=== PATIENT | female | born 1990 | race Hispanic/Latino ===

== ENCOUNTER 2017-12-24 19:05 | Emergency (ER) | payer OTHER ==
[2017-12-24 19:35] LABS: KETONE, URINE AUTO RFX NEGATIVE (NEGATIVE); LEUKOCYTE ESTERASE UR AUTO RFX NEGATIVE (NEGATIVE); MUCUS, URINE RFX SMALL (NEGATIVE); NITRITE, URINE AUTO RFX NEGATIVE (NEGATIVE); RBC, URINE AUTO RFX 2 /HPF (0-3); SQUAM EPITHELIAL CELL UR AURFX 0 /HPF (0-6); WBC, URINE AUTO RFX 0 /HPF (0-3)
[2017-12-24 19:37] LABS: BASO % 0.2 % (0.0-1.0); EOS # 0.2 10^3/uL (0.0-0.50); HEMATOCRIT 41.9 % (36.0-47.0); HEMOGLOBIN 14.2 g/dl (12.0-15.5); IMMATURE GRANULOCYTE % 0.4 % (0-3.0); LYMPH # 1.5 10^3/uL (1.5-6.5); LYMPH % 12.7 % (24.0-44.0); MEAN CORPUSCULAR HEMOGLOBIN 30.7 pg (27.0-33.0); MEAN CORPUSCULAR HGB CONC 33.9 g/dl (32.0-36.5); MEAN CORPUSCULAR VOLUME 90.7 fl (80.0-96.0); MONO # 0.8 10^3/uL (0.0-0.8); MONO % 6.4 % (0.0-5.0); NEUTROPHILS # 9.5 10^3/uL (1.8-7.7); NEUTROPHILS % 78.3 % (36.0-66.0); PLATELET COUNT, AUTOMATED 314 10^3/uL (150-450); RED BLOOD COUNT 4.62 10^6/uL (4.00-5.40); RED CELL DISTRIBUTION WIDTH 12.4 % (11.5-14.5); WHITE BLOOD COUNT 12.1 10^3/uL (4.0-10.0)
[2017-12-24 20:24] LABS: ANION GAP 9 MEQ/L (8-16); BLOOD UREA NITROGEN 9 MG/DL (7-18); CALCIUM LEVEL 9.3 MG/DL (8.5-10.1); CARBON DIOXIDE LEVEL 28 MEQ/L (21-32); CHLORIDE LEVEL 102 MEQ/L (98-107); CREATININE FOR GFR 0.78 MG/DL (0.55-1.30); GLOMERULAR FILTRATION RATE > 60.0 (>60); GLUCOSE, FASTING 85 MG/DL (70-100); HCG, SERUM QUANTITATIVE 11925 MIU/ML; POTASSIUM SERUM 3.9 MEQ/L (3.5-5.1); SODIUM LEVEL 139 MEQ/L (136-145)
== END 2017-12-24 21:28 | disposition home or self-care (01) ==
LOC: M ED 19:05
DX: O03.9 Complete or unspecified spontaneous abortion without complication (principal)
CPT/HCPCS: 76801

== ENCOUNTER → 2017-12-30 | Outpatient (CLI) | payer OTHER | LOC: M WHC 14:32 | DX: O02.81 Inappropriate change in quantitative human chorionic gonadotropin (hCG) in early pregnancy (principal) | CPT/HCPCS: 76801 ==

== ENCOUNTER 2018-01-11 07:23 | Day surgery (SDC) | payer OTHER ==
[2018-01-11 07:44] LABS: HEMATOCRIT 39.1 % (36.0-47.0); MEAN CORPUSCULAR HEMOGLOBIN 30.4 pg (27.0-33.0); MEAN CORPUSCULAR HGB CONC 33.2 g/dl (32.0-36.5); MEAN CORPUSCULAR VOLUME 91.4 fl (80.0-96.0); PLATELET COUNT, AUTOMATED 300 10^3/uL (150-450); RED BLOOD COUNT 4.28 10^6/uL (4.00-5.40); RED CELL DISTRIBUTION WIDTH 12.6 % (11.5-14.5); WHITE BLOOD COUNT 9.4 10^3/uL (4.0-10.0)
[2018-01-11] MEDS: DOXYCYCLINE HYCLATE 100 MG TAB PO ×2 (07:50→11:11)
[2018-01-11] MEDS: LR 1,000 ML IV (08:10)
[2018-01-11] MEDS ORDERED: LIDOCAINE 2% INJ 100 MG/5 ML SDV (FOR ANES.) As Ordered (08:29)
[2018-01-11] MEDS ORDERED: MIDAZOLAM INJ 2 MG/2 ML VIAL (J2250) As Ordered (08:29)
[2018-01-11] MEDS ORDERED: PROPOFOL 200 MG/20 ML VIAL As Ordered (08:29)
[2018-01-11] MEDS ORDERED: fentaNYL 100 MCG/2 ML INJECTION (J3010) As Ordered (08:30)
[2018-01-11] MEDS ORDERED: ONDANSETRON 4MG/2ML VIAL (J2405) As Ordered ×2 (08:33→09:07)
[2018-01-11] MEDS ORDERED: SCOPOLAMINE 1MG TRANSDERMAL PATCH As Ordered (08:33)
[2018-01-11] MEDS: SCOPOLAMINE 1MG TRANSDERMAL PATCH TOP (08:35)
[2018-01-11] MEDS ORDERED: ROCURONIUM BROMIDE 50 MG/5 ML VIAL As Ordered (08:36)
[2018-01-11] MEDS: ONDANSETRON 4MG/2ML VIAL (J2405) IV (08:36)
[2018-01-11] MEDS ORDERED: METOCLOPRAMIDE INJ 10MG/2ML VIAL (J2765) As Ordered (09:07)
[2018-01-11] MEDS ORDERED: SUGAMMADEX SODIUM 500 MG/5 ML VIAL (BRIDION) As Ordered (09:07)
[2018-01-11] MEDS ORDERED: dexameTHASONE 4 MG/ML 1ML VIAL (J1100) As Ordered ×2 (09:07)
[2018-01-11] MEDS ORDERED: KETOROLAC 60 MG/2 ML VIAL (J1885) As Ordered (09:07)
[2018-01-11] MEDS: METHYLERGONOVINE MALEATE 0.2 MG/ML VIAL (J2210) As Ordered (09:39)
[2018-01-11] MEDS: DOXYCYCLINE HYCLATE 100 MG/10 ML VIAL As Ordered (09:42)
[2018-01-11] MEDS ORDERED: IBUPROFEN 800 MG TAB PO ×2 (10:15→17:00)
[2018-01-11] MEDS ORDERED: PERCOCET 5MG/325MG TAB PO ×2 (10:15)
[2018-01-11] MEDS ORDERED: fentaNYL 100 MCG/2 ML INJECTION (J3010) IV (10:15)
[2018-01-11] MEDS ORDERED: ONDANSETRON 4MG/2ML VIAL (J2405) IV (10:15)
[2018-01-11] MEDS ORDERED: METOCLOPRAMIDE INJ 10MG/2ML VIAL (J2765) IV (10:15)
[2018-01-11] MEDS ORDERED: LR 1,000 ML IV (10:15)
== END 2018-01-11 11:54 | disposition home or self-care (01) ==
LOC: M SDC 07:23
DX: O02.1 Missed abortion (principal)
CPT/HCPCS: 59820

== ENCOUNTER 2018-12-30 10:20 | Emergency (ER) | payer OTHER ==
[~2018-12-30] VITALS: Ht 157.5 cm; Wt 77.2 kg
[~2018-12-30 10:20] MED LIST: PRENTAB55 PO
[2018-12-30] MEDS ORDERED: PREN27TA3 (10:25)
[2018-12-30 11:16] LABS: BASO % 0.2 % (0.0-1.0); EOS # 0.1 10^3/uL (0.0-0.5); EOS % 1.2 % (0.0-3.0); HEMOGLOBIN 12.9 g/dl (12.0-15.5); LYMPH # 1.9 10^3/uL (1.5-5.0); LYMPH % 19.3 % (24.0-44.0); MEAN CORPUSCULAR HEMOGLOBIN 30.2 pg (27.0-33.0); MEAN CORPUSCULAR HGB CONC 33.1 g/dl (32.0-36.5); MEAN CORPUSCULAR VOLUME 91.3 fl (80.0-96.0); MONO # 0.5 10^3/uL (0.0-0.8); MONO % 5.1 % (0.0-5.0); NEUTROPHILS # 7.1 10^3/uL (1.5-8.5); NEUTROPHILS % 73.9 % (36.0-66.0); PLATELET COUNT, AUTOMATED 295 10^3/uL (150-450); RED BLOOD COUNT 4.27 10^6/uL (4.00-5.40); WHITE BLOOD COUNT 9.6 10^3/uL (4.0-10.0)
[2018-12-30 11:46] LABS: HCG, SERUM QUALITATIVE POSITIVE (NEGATIVE)
--- NOTE | 2018-12-30 11:52 | REP ---
First trimester emergency obstetric sonography: History: The vaginal bleeding. Findings: Transabdominal scanning confirms presence of a viable single intrauterine gestation. Embryonic pole is 38 mm in crown-rump length corresponding to a gestational age estimate 7 weeks 5 days. heart rate is documented at 169 beats per minute. No subchorionic hemorrhage is seen. No extrauterine abnormalities observed. Impression: Viable single intrauterine gestation at 10 weeks 5 days by crown-rump length. LOLI by sonography July 23, 2019. No complication is identified. Electronically Signed by Mike Huitron MD 12/30/2018 11:44 A
[2018-12-30 12:51] LABS: HCG, SERUM QUANTITATIVE 59344 MIU/ML
[2018-12-30 13:21] VITALS: BP 114/65
[2018-12-30 14:43] LABS: CHLAMYDIA DNA AMPLIFICATION NEGATIVE (NEGATIVE); GC DNA AMPLIFICATION NEGATIVE (NEGATIVE)
== END 2018-12-30 13:35 | disposition home or self-care (01) ==
LOC: M ED 10:20
DX: O20.8 Other hemorrhage in early pregnancy (principal); Z87.59 Personal history of other complications of pregnancy, childbirth and the puerperium; Z3A.10 10 weeks gestation of pregnancy; Z79.899 Other long term (current) drug therapy

== ENCOUNTER 2019-07-22 05:39 | Inpatient (IN) | payer OTHER ==
[~2019-07-22] VITALS: Ht 160 cm; Wt 85.0 kg
[2019-07-22] VITALS (28 sets, daily range): BP systolic 95–136; BP diastolic 53–81
[~2019-07-22 05:39] MED LIST changes: +PREN27TA3
[2019-07-22] MEDS ORDERED: LACTATED RINGER'S 1000 ML IV STA (06:03)
[2019-07-22] MEDS ORDERED: PENICILLIN G POTASSIUM IV 5 MU in D5W MINI-BAG PLUS 100 ML IV STA (06:03)
--- NOTE | 2019-07-22 06:15 | HPEPDOC ---
Obstetrical History & Physical General Date of Admission July 22, 2019 at 05:39 History of Present Illness Traci is a 28yo with SIUP at 39w4d by lmp c/w 11wk u/s presenting fo r regular ctx for approx 3 hours. Painful, breathing through them. No LOF, no vaginal bleeding, good movement. No n/v/f/c/CP/SOB. Chief Complaint: Contractions, term Information Provided By: Patient Care Care: Good Care Dating Final EDC: Jul 25, 2019 Final EDC by: LMP, 1st trimester (US) Antepartum Course Diagnos(e)s Overweight (starting BMI 27.5), elevated early 1hr glucola with normal 3hr GTT and subsequent normal 1hr glucola at 28wk, anemia Height (inches): 63 Pre- weight (lbs.): 155 Admission Weight (lbs.): 184 Change in Weight (lbs.): 29 Past Medical History Past Obstetrical History : Past Obstetrical History: Multigravida (G1 08/2016 39wk uncomplicated [id number] F. G2 8wk sab with D&C) [employer] History: Spontaneous Past Medical History Medical History Overweight BMI 27 Surgical History: Dilatation and Curettage, [place] teeth, Other (right knee scope) Family History Significant Family History: No pertinent family hx Social History Marital Status: Family situation: Spouse/partner home Psychosocial History: No pertinent psych hx * Smoker: non-smoker Alcohol: Denies Drugs: denies Imunizations Tdap status: current Influenza Status: current Allergies Coded Allergies: No Known Allergies (Unverified , 12/24/17) Medications Miscellaneous Medications Pnv,Calcium 72/Iron/Folic Acid ( Vitamin Plus Low Iron) 1 Each Tablet Physical Examination Physical Examination GENERAL: Alert and oriented times three. ABDOMEN: Gravid and non-tender to touch. FETUS: Is vertex (VTX) by sterile vaginal examination (SVE) EXTREMITIES: No edema Laboratory Data 24H [facility]S Laboratory Tests 2 07/22/19 05:58: Serology Scanned Report Hepatitis B Testing Pertinent Laboratoy Data Blood Type: O+ RBC Antibody Screen: Negative HIV: Negative Hepatitis B: Negative Hepatitis C: Unknown Rapid Plasma Reagin: Nonreactive Rubella: Immune Varicella: Immune Chlamydia/Gonorrhea: Negative Group B Streptococcus: Positive Quad Screen Test: Negative Glucose Tolerance Test: 113 Anatomy Ultrasound Ultrasound Date: Mar 10, 2019 Placenta Location: Anterior Normal Anatomy: Yes Placenta Previa: No Steroid Therapy Steroid Therapy: No Vaginal Examination Dilation: 5 cm Effacement: 80% Station: -1 Cervical Consistency: Soft Cervical Position: Anterior Presentation: Cephalic presentation Assessment Heart Rate (FHR): 150 Variability: Moderate Accelerations: Positive Decelerations: None Tocometer Contractions: Yes Frequency: regular, every 2-5 min. Duration: greater than 60 seconds Strength: palpated as strong Assessment/Plan Assessment Traci is a 28yo with SIUP at 39w4d by lmp c/w 11wk u/s in active labor with SCE 5/80/-1 with ctx q5min. Cephalic by SCE. GBS positive. Vitals wnl, afebrile, benign exam. Cat I FHRT. PMhx significant for: anemia, overweight (starting BMI 27.5), elevated early 1hr glucola with normal 3hr GTT and subsequent normal 1hr glucola at 28wk Plan Admit and orient. Manager Universal and consent. Diet: clear liquids Group B Streptococcus (GBS) positive, PCN per protocol Labs and intravenous (IV) per unit protocol. Lactated Ringers (LR): Bolus 1000 mL, then at 125 mL/hr. Anticipate normal spontaneous delivery () Candidate for epidural as desired Safe to proceed MD Chuyita Grossman Katrina D MD July 22, 2019 06:15
[2019-07-22] MEDS: LR 1,000 ML IV SCH ×2 (06:27→09:15)
[2019-07-22 06:29] LABS: BASO % 0.2 % (0.0-1.0); EOS # 0.1 10^3/uL (0.0-0.5); EOS % 0.6 % (0.0-3.0); HEMATOCRIT 34.6 % (36.0-47.0); HEMOGLOBIN 11.1 g/dl (12.0-15.5); LYMPH # 1.8 10^3/uL (1.5-5.0); LYMPH % 16.8 % (24.0-44.0); MEAN CORPUSCULAR HGB CONC 32.1 g/dl (32.0-36.5); MEAN CORPUSCULAR VOLUME 84.2 fl (80.0-96.0); MONO # 0.8 10^3/uL (0.0-0.8); MONO % 7.6 % (0.0-5.0); NEUTROPHILS % 74.1 % (36.0-66.0); PLATELET COUNT, AUTOMATED 286 10^3/uL (150-450); RED BLOOD COUNT 4.11 10^6/uL (4.00-5.40); WHITE BLOOD COUNT 10.8 10^3/uL (4.0-10.0)
[2019-07-22] MEDS ORDERED: FENTANYL 2MCG/ML ROPIVACAINE 0.2% IN 0.9% NACL 100ML IVBAG As Ordered ONE (07:08)
[2019-07-22] MEDS ORDERED: ePHEDrine SULFATE 25 MG/5 ML(5MG/ML) SYRINGE IV PRN (07:45)
[2019-07-22] MEDS ORDERED: LACTATED RINGER'S 1000 ML IV PRN (07:45)
[2019-07-22] MEDS ORDERED: FENTANYL/ROPIVACAINE/NACL BAG 100 ML EPIDURAL SCH (07:45)
[2019-07-22] MEDS ORDERED: EPIDURAL COMMENT XX SCH (07:45)
[2019-07-22] MEDS ORDERED: ONDANSETRON 4MG/2ML VIAL IV PRN ×2 (07:45→12:45)
[2019-07-22] MEDS ORDERED: diphenhydrAMINE 50MG/ML VIAL (J1200) IV PRN (07:45)
[2019-07-22] MEDS ORDERED: EPIDURAL/PCA KEYS XX PRN (07:45)
[2019-07-22] MEDS ORDERED: REFRIGERATOR IV KEYS XX PRN (07:45)
[2019-07-22] MEDS ORDERED: NALOXONE INJ 0.4MG/1ML VIAL (J2310 PER 1MG) IV PRN (07:45)
[2019-07-22] MEDS ORDERED: OXYTOCIN DRIP 30 UNITS in IV 1 EA IV SCH (10:15)
[2019-07-22] MEDS ORDERED: PENICILLIN G POTASSIUM IV 2.5 MU in IV 1 EA IV SCH (10:30)
[2019-07-22 11:20] LABS: CORD GAS ABE A -3.2; CORD GAS O2 SAT A 76.8 %; CORD GAS PCO2 A 31.2 mmHg; CORD GAS PH A 7.425 UNITS; CORD GAS PO2 A 35.2 mmHg; CORD GAS SBC A 21.3 MEQ/L
[2019-07-22 11:21] LABS: CORD GAS ABE V -1.4; CORD GAS HCO3 V 22.2 MEQ/L; CORD GAS O2 SAT V 76.2 %; CORD GAS PCO2 V 34.2 mmHg; CORD GAS PH V 7.43 UNITS; CORD GAS PO2 V 33.8 mmHg; CORD GAS SBC V 22.8 MEQ/L; CORD GAS TCO2 V 23.2 MEQ/L
[2019-07-22] MEDS ORDERED: NITROGLYCERIN IN D5W 25MG/250ML (100MCG/ML) As Ordered ONE (11:41)
[2019-07-22] MEDS ORDERED: MIDAZOLAM INJ 2MG/2ML VIAL (J2250 PER 1MG) As Ordered ONE (11:42)
[2019-07-22] MEDS ORDERED: CHLOROPROCAINE PRES. FREE 3% 20ML VIAL As Ordered ONE (11:45)
[2019-07-22] MEDS ORDERED: OXYTOCIN INJ 10 UNITS/ML VIAL (J2590) As Ordered ONE ×2 (11:59→12:00)
[2019-07-22] MEDS ORDERED: OXYTOCIN DRIP IV SCH (12:00)
[2019-07-22] MEDS ORDERED: ceFAZolin 2 GM/D5W 50 ML IV BAG (J0690 PER 500MG) As Ordered ONE (12:06)
[2019-07-22] MEDS ORDERED: miSOPROStol 200 MCG TAB (S0191) As Ordered ONE (12:10)
[2019-07-22] MEDS ORDERED: ONDANSETRON 4MG/2ML VIAL As Ordered ONE (12:18)
[2019-07-22] MEDS ORDERED: METHYLERGONOVINE MALEATE 0.2 MG TAB PO PRN (12:45)
[2019-07-22] MEDS ORDERED: MEASLES,MUMPS,RUBELLA VACCINE INJ (MMR-II) (90707) SC SCH (12:45)
[2019-07-22] MEDS ORDERED: ACETAMINOPHEN 500 MG TAB PO PRN (12:45)
[2019-07-22] MEDS ORDERED: RHOGAM 300 MCG (1500 IU) INJ (J2790) IM SCH (12:45)
[2019-07-22] MEDS ORDERED: ANUSOL HC CREAM 30GM TOP PRN (12:45)
[2019-07-22] MEDS ORDERED: DIBUCAINE 1% OINTMENT 30GM TOP PRN (12:45)
[2019-07-22] MEDS ORDERED: MOM 30ML SUSPENSION UDC PO PRN (12:45)
[2019-07-22] MEDS ORDERED: IBUPROFEN 600 MG TAB PO PRN (12:45)
[2019-07-22] MEDS ORDERED: oxyCODONE 5MG TAB PO PRN (12:45)
[2019-07-22] MEDS ORDERED: DOCUSATE SODIUM 100 MG CAP PO PRN (12:45)
[2019-07-22] MEDS ORDERED: OXYTOCIN INJ 10 UNITS/ML VIAL (J2590) IV ONE (12:45)
[2019-07-22] MEDS ORDERED: IBUPROFEN 800 MG TAB PO PRN (12:45)
[2019-07-22] MEDS ORDERED: ACETAMINOPHEN TAB 650MG DOSE (2X325MG) PO PRN (12:45)
[2019-07-22] MEDS ORDERED: ceFAZolin SOD 2 GM in IV 1 EA IV ONE (13:15)
[2019-07-22] MEDS ORDERED: miSOPROStol 200 MCG TAB (S0191) PR ONE (13:30)
[2019-07-22] MEDS ORDERED: SLF 3 ML SYR IV PRN (16:45)
[2019-07-22] MEDS: SLF 3 ML SYR IV SCH (22:50)
[2019-07-23 06:04] VITALS: BP 106/57
[2019-07-23] MEDS: SLF 3 ML SYR IV SCH (06:11)
[2019-07-23 07:35] LABS: HEMATOCRIT 26.4 % (36.0-47.0); MEAN CORPUSCULAR HEMOGLOBIN 27.8 pg (27.0-33.0); MEAN CORPUSCULAR HGB CONC 32.6 g/dl (32.0-36.5); MEAN CORPUSCULAR VOLUME 85.4 fl (80.0-96.0); PLATELET COUNT, AUTOMATED 204 10^3/uL (150-450); RED BLOOD COUNT 3.09 10^6/uL (4.00-5.40); WHITE BLOOD COUNT 11.2 10^3/uL (4.0-10.0)
[2019-07-23 07:55] LABS: HEMOGLOBIN 8.6 g/dl (12.0-15.5)
[2019-07-23] MEDS ORDERED: IBUP80TA PO (08:41)
[2019-07-23] MEDS ORDERED: DIBU10OI TOP (08:41)
[2019-07-23] MEDS ORDERED: DOCU100C16 PO (08:41)
[2019-07-23] MEDS ORDERED: PROC1CRE5 TOP (08:41)
[2019-07-23] MEDS ORDERED: PRENATAL VITAMINS CHEWABLE TABLET PO SCH (09:00)
--- NOTE | 2019-07-23 13:21 | IPN ---
DATE: 07/22/2019 This is a 28-year-old 3, para 1 admitted at 39 and 4 weeks of gestation with irregular contractions for approximately 3 hours. On examination presently she has an epidural in place. She is GBS positive. Prophylactic antibiotics are complete. Her blood pressures were 97/53, respirations 18, pulse 86 and she is afebrile. On examination, she is still 5-6 cm, floppy cervix, posterior occiput transverse. There were membranes over the head. An artificial rupture of membranes (AROM) was done with some light meconium-tinged liquor. Category one strip, requires augmentation with Pitocin. Explained the plan of care to the patient, expressed understanding. Safe to proceed
[2019-07-23 18:00] VITALS: BP 122/59
--- NOTE | 2019-07-27 07:29 | IPN ---
DATE: 07/22/2019 This patient requested circumcision of her male after discussing risks and benefits of circumcision, the medical and nonmedical indications, penile block and aftercare, expressed understanding of penile block, aftercare and bleeding. Signed the consent form. All questions were answered. 20-minute discussion. We await the clearance by the aperture mask etcher.
--- NOTE | 2019-07-28 20:51 | DN ---
DATE: 07/22/2019 This lady was admitted in labor at 39 and 4 weeks of gestation. She had an epidural in place. Had a spontaneous vaginal delivery after an AROM draining clear liquour, a live male infant, 7 pounds 9 ounces, scores of 8 and 9 at 1 and 5 minutes respectively. Arterial pH 7.42, base excess -3.2, venous pH 7.43, base excess -1.4. She had a small first-degree tear oversewn in the usual fashion with 2-0 Vicryl and [id number]. Placenta was retained. After 30 minutes of retained placenta she was taken back to the operating feeder for manual removal of the placenta.
--- NOTE | 2019-07-29 16:31 | RO ---
DATE OF PROCEDURE: 07/22/2019 PREOPERATIVE DIAGNOSIS: Retained placenta . POSTOPERATIVE DIAGNOSIS: Retained placenta . OPERATION PROPOSED: Manual exploration and removal of placenta. OPERATION PERFORMED: Manual exploration and removal of placenta. SURGEON: reginald parham md MATHEMATICIAN: ANESTHESIA: Epidural plus medication. ESTIMATED BLOOD LOSS: 300 mL. DESCRIPTION OF PROCEDURE: After adequate anesthesia, prepped and draped in the lithotomy position. The Cain catheter remained in the bladder draining clear urine. The patient was given some nitrous sublingually or IV and relaxed the uterus. We initially attempted to remove the placenta but found that we could not establish a plane between the uterus and the placenta, which was high up in the fundus of the uterus. Eventually, we were able to establish a finger hole and then removed the placenta after establishing a good plane. The placenta itself appeared to be intact with membranes. It was sent off to pathology. We then did a sweep with a 4x4 to the intrauterine cavity making sure there is no extra membranes or tissue remaining. The patient was given Pitocin 5 units IV push and then 30 in the bottle of 500, also Cytotec 1000 per rectum. The uterus contracted well down. We awaite, no evidence of active bleeding. The Cain catheter remained in the bladder and the patient was taken to recovery in good condition. She was given 2 grams of Ancef preprocedure MTDD
--- NOTE | 2019-07-29 17:17 | DSES ---
DATE OF ADMISSION: 07/22/2019 DATE OF DISCHARGE: 07/23/2019 This lady is a 28-year-old 3, now para 2, admitted with contractions at 39 and 4 weeks of gestation. She had a spontaneous vaginal delivery of a male, , 7 pounds 9 ounces, 3440 grams, scores of 8 and 9 at one and five minutes, respectively. Arterial pH 7.42, base excess -3.2. Venous pH 7.43, base excess of -1.4. She sustained a retained placenta. Required manual removal of placenta in the operating theater, and she has a sustained a first-degree tear, which was repaired in the usual fashion. She had an uneventful manual removal. Her admitting hemoglobin was 11.1, hematocrit 34.6, and platelets were 286. A repeat of her complete blood count (CBC) 6 hours later, her hemoglobin was 8.6, hematocrit was 26.4, and platelets were 204. Her vital signs: Her blood pressure 106/57, respirations 17, pulse 94, temperature 98.3. Rest of the examination unremarkable. Normocephalic, atraumatic. Neck: Full range of motion. Pupils equal and reactive to light. Distal pulses are symmetric. No evidence of deep vein thrombosis (DVT), pulmonary embolism (PE), or superficial phlebitis. Chest is clear bilaterally to bases. No wheezes or rhonchi. No costovertebral angle (CVA) tenderness. Abdomen soft. Uterus 2 below. Lochia is moderate. Four-quadrant bowel sounds are noted. Perineum is healing. No rashes, lesions, or pruritus. No arthralgia, myalgia. No complaint joint pain. No complaint cough, wheezes,, shortness of breath, or dyspnea on exertion. No nausea, vomiting, diarrhea, or constipation. In summary, we have a term gestation, delivered a live- male infant requiring manual removal of placenta. Stabilized. Our plan is to have her shrimp picker her medications at [place]. A 6-week checkup. We will circumcise the baby once cleared by the electric motor rebuilder and anticipate a later discharge today.
== END 2019-07-23 20:00 | disposition home or self-care (01) | DRG 807 ==
LOC: M LDI 05:39 → M OBS 16:26
PROVIDERS: ADMIT Obstetrics & Gynecology; ATTEND Obstetrics & Gynecology
PROC: 10D17Z9 Manual Extraction of Products of Conception, Retained, Via Natural or Artificial Opening (ICD-10-PCS; 2019-07-22)
PROC: 0HQ9XZZ Repair Perineum Skin, External Approach (ICD-10-PCS; 2019-07-22)
PROC: 10907ZC Drainage of Amniotic Fluid, Therapeutic from Products of Conception, Via Natural or Artificial Opening (ICD-10-PCS; 2019-07-22)
PROC: 10E0XZZ Delivery of Products of Conception, External Approach (ICD-10-PCS; principal; 2019-07-22 11:33)
DX: O99.824 Streptococcus B carrier state complicating childbirth (principal); Z37.0 Single live birth; Z3A.39 39 weeks gestation of pregnancy; O70.0 First degree perineal laceration during delivery; O73.0 Retained placenta without hemorrhage